=== PATIENT | male | born 1980 | race Caucasian/White ===

== ENCOUNTER 2017-11-16 05:38 | Emergency (ER) | payer MEDICAID, SELFPAY ==
[~2017-11-16] VITALS: Ht 188 cm; Wt 72.2 kg
[2017-11-16] MEDS ORDERED: ONDANSETRON ODT 8 MG ONE ×2 (05:57→05:58)
[2017-11-16] MEDS ORDERED: MAALOX/HYOSCYAMINE/LIDOCAINE 45 ML BTL ONE (05:57)
[2017-11-16] MEDS ORDERED: ONDANSETRON ODT 8 MG PO ONE (06:00)
[2017-11-16] MEDS ORDERED: MAALOX/HYOSCYAMINE/LIDOCAINE 45 ML BTL PO ONE (06:00)
[2017-11-16 06:29] LABS: MICROSCOPIC NOT IND
[2017-11-16 06:31] LABS: CULTURE INDICATED? NO
[2017-11-16 06:49] VITALS: BP 134/92
== END 2017-11-16 07:59 | disposition home or self-care (01) ==
LOC: ED 07:20
DX: K29.00 Acute gastritis without bleeding (principal); F17.200 Nicotine dependence, unspecified, uncomplicated
CPT/HCPCS: 74021; 81003; 99285; Q0162